=== PATIENT | male | born 1965 | race Two or more races ===

== ENCOUNTER 2020-05-07 12:55 | Observation (INO) ==
[~2020-05-07 12:55] MED LIST: DIPRIVAN VIAL ONE; TORADOL 30 MG VIAL ONE; ULTANE GAS IN ONE; VERSED ONE; XYLOCAINE 2 % (PLAIN) ONE; ZOFRAN INJ 4 MG VIAL ONE
[2020-05-07] MEDS ORDERED: LR 1000 ML IV 1,000 ML IV ONE ×2 (13:01→15:23)
[2020-05-07] MEDS ORDERED: ANCEF 1 GRAM IV PREMIX* 1 G/50 ML BAG IV ONE ×2 (13:01→16:00)
[2020-05-07] MEDS ORDERED: NAROPIN 0.75% EPI ONE (13:36)
[2020-05-07] MEDS ORDERED: DILAUDID INJ ONE ×4 (15:22→21:28)
[2020-05-07] MEDS ORDERED: DECADRON INJ ONE (15:22)
[2020-05-07] MEDS ORDERED: FENTANYL INJ 100 mcg ONE ×2 (15:22→16:36)
[2020-05-07] MEDS ORDERED: OFIRMEV IV 1000 MG VIAL 1,000 MG/100 ML VIAL IV ONE (15:23)
[2020-05-07] MEDS ORDERED: ZEMURON 50 MG VIAL ONE (15:23)
[2020-05-07] MEDS ORDERED: MARCAINE 0.25% INJ ONE (15:40)
[2020-05-07] MEDS: DILAUDID INJ IVP PRN ×4 (19:25→23:04)
[2020-05-07] MEDS ORDERED: REGLAN INJ 10 MG VIAL IVP PRN (19:32)
[2020-05-07] MEDS ORDERED: PHENERGAN INJ 25 MG IM PRN (19:32)
[2020-05-07] MEDS ORDERED: ZOFRAN INJ 4 MG VIAL IVP PRN (19:32)
[2020-05-07] MEDS ORDERED: BENADRYL INJ 50 MG VIAL IVP PRN (19:32)
[2020-05-07] MEDS ORDERED: TYLENOL 325 MG TAB PO PRN (20:10)
[2020-05-07] MEDS ORDERED: PERCOCET TAB 5/325 MG PO PRN (20:15)
[2020-05-07] MEDS ORDERED: NS 100 ML IV 100 ML IV SCH (21:00)
[2020-05-07] MEDS: NS 100 ML IV 100 ML IV SCH ×2 (23:01)
[2020-05-07] MEDS: COLACE CAP 100 MG PO SCH (23:12)
[2020-05-07] MEDS: LOVENOX INJ 40 MG SYR SC SCH (23:12)
[2020-05-07] MEDS: NS 1000 ML 1,000 ML IV SCH (23:47)
[2020-05-08 00:36] VITALS: BMI 34.9
[2020-05-08] MEDS: DILAUDID INJ ONE ×2 (03:46→19:58)
[2020-05-08] MEDS: DILAUDID INJ IVP PRN ×4 (03:47→21:53)
[2020-05-08] MEDS: NS 1000 ML 1,000 ML IV SCH ×2 (10:00→13:56)
[2020-05-08] MEDS: LOVENOX INJ 40 MG SYR SC SCH (10:16)
[2020-05-08] MEDS ORDERED: TORADOL 30 MG VIAL IVP ONE ×2 (13:12→20:00)
--- NOTE | 2020-05-08 14:44 | PCM.PROG ---
Progress Note Progress Note for Day of Date of Exam: 05/08/20 Past Medical Family Social History Past Med/Fam/Surg Hx: No changes since H&P Allergies: Allergies No Known Drug Allergies Allergy (Verified 05/07/20 13:18) Vital Signs and I&O's Vital Signs: Temperature 99 F Pulse Rate [Left Radial] 86 Pulse Rate 58 Respiratory Rate 18 Blood Pressure [Left Arm] 153/88 Blood Pressure 174/78 O2 Sat by Pulse Oximetry 96 Intake and Output: Intake & Output 05/05/20 05/06/20 05/07/20 05/08/20 23:59 23:59 23:59 23:59 Intake Total 940 / 940 540 / 540 Output Total 975 / 975 300 / 300 Balance -35 / -35 240 / 240 Physical Exam Oriented: Normal Eyes: Normal Psychiatric: Normal Mood Description: Calm and Anxious Speech Pattern: Clear and Appropriate Laboratory and Diagnostics Labs: Laboratory POC Glucose (mg/dL) 117 mg/dL (65-99) H 05/08/20 13:54 Plan (1) Foot pain, right: Status: Acute ASSESSMENT AND PLAN (NQ) Assessment and Plan (1) Foot pain, right: Status: Acute Comment: - Pt seen/evaluated today as he is s/p right ankle surgery and application of external fixator. Pain management regimen has been modified to include the followin. 30mg IV Toradol @ 1pm and another 30mg 6 hours later @ 7pm 2. Hydrocodone 15mg PO Q4h for moderate pain (4-6) 3. Dilaudid 1mg IV Q4h for severe pain (7-10) - Mr. Campos will require official admission for continued post-operative pain managememt , for which will be the accepting physician. - toe touch WB to right foot w/ use of assistive device - c/w incentive spirometer - pt will be seen tomorrow --> if pain is well controlled, he will be cleared for d/c tomorrow.
[2020-05-08] MEDS ORDERED: LOSARTAN HYDROCHLOROTHIAZIDE PO SCH (18:15)
[2020-05-08] MEDS: NORVASC TAB 10 MG PO SCH (18:32)
[2020-05-08] MEDS: APRESOLINE TAB 25 MG PO SCH ×2 (18:36→19:59)
[2020-05-08] MEDS ORDERED: PERCOCET TAB 5/325 MG ONE (18:40)
[2020-05-08] MEDS: ROXICODONE TAB 15 MG PO PRN (18:44)
[2020-05-08] MEDS ORDERED: GLUCOPHAGE ONE (20:22)
[2020-05-08] MEDS ORDERED: FLOMAX PO SCH (21:00)
[2020-05-08] MEDS ORDERED: COREG TAB 12.5 MG PO SCH (21:00)
[2020-05-08] MEDS ORDERED: RESTORIL CAP 30 MG PO SCH (21:00)
[2020-05-08] MEDS ORDERED: LIPITOR TAB 20 MG PO SCH (21:00)
[2020-05-08] MEDS: COREG TAB 12.5 MG PO SCH (21:21)
[2020-05-08] MEDS: COLACE CAP 100 MG PO SCH (21:21)
[2020-05-08] MEDS: GLUCOPHAGE PO SCH (21:21)
[2020-05-09] MEDS: NS 1000 ML 1,000 ML IV SCH ×3 (00:07→09:45)
[2020-05-09] MEDS: ROXICODONE TAB 15 MG PO PRN ×3 (00:47→13:47)
[2020-05-09] MEDS: DILAUDID INJ IVP PRN ×2 (01:48→05:46)
[2020-05-09] MEDS ORDERED: TORADOL 30 MG VIAL IVP ONE (07:59)
[2020-05-09] MEDS ORDERED: HYZAAR 50/12.5 MG PO SCH (09:00)
[2020-05-09] MEDS ORDERED: PATIENT'S HOME MEDICATION (Levocetirizine 5 mg Tablet) PO SCH (09:00)
[2020-05-09] MEDS ORDERED: DILAUDID INJ IVP PRN (09:02)
[2020-05-09] MEDS: APRESOLINE TAB 25 MG PO SCH ×2 (09:56→13:46)
[2020-05-09] MEDS: GLUCOPHAGE PO SCH (09:58)
[2020-05-09] MEDS: COREG TAB 12.5 MG PO SCH (09:58)
[2020-05-09] MEDS: NORVASC TAB 10 MG PO SCH (09:58)
[2020-05-09] MEDS: LOVENOX INJ 40 MG SYR SC SCH (09:59)
[2020-05-09 12:34] VITALS: BP 190/88
== END 2020-05-09 14:40 | disposition home or self-care (01) ==
LOC: SURG1 12:55 → OBS 12:55
PROVIDERS: ADMIT Obstetrics & Gynecology Obstetrics; ATTEND Obstetrics & Gynecology Obstetrics
PROC: [UNRECOGNIZED PROCEDURE] (2020-05-07 15:45)
PROC: APEXFIX (2020-05-07 15:45)
PROC: GASTREC (ICD-10-PCS; 2020-05-07 15:45)
DX: M79.671 Pain in right foot; M24.671 Ankylosis, right ankle